=== PATIENT | male | born 1990 | race Caucasian/White ===

== ENCOUNTER 2018-01-21 16:07 | Emergency (ER) | payer OTHER ==
[2018-01-21] MEDS ORDERED: Haloperidol INJ IV/IM* 5 MG/ML AMP ONE (16:40)
[2018-01-21] MEDS ORDERED: diPHENhydraMINE IV* 50 MG/ML 1 ml VIAL (BENADRYL) ONE (16:40)
[2018-01-21] MEDS ORDERED: LORazepam INJ* 2 MG/ML 1 ML VIAL ONE (16:40)
[2018-01-21 16:56] LABS: Urine Appearance Cloudy; Urine Blood Negative (Negative); Urine Color Yellow; Urine Ketones Negative (Negative); Urine Protein 1+(30 mg/dL) (Negative); Urine Specific Gravity 1.016 (1.010-1.030); Urine Urobilinogen Negative (Negative)
[2018-01-21 17:06] LABS: ABS Basophils 0.1 10^3/ul (0-0.2); ABS Eosinophils 0.1 10^3/ul (0-0.6); ABS Lymphocytes 1.6 10^3/ul (1.0-4.8); ABS Monocytes 0.6 10^3/ul (0-0.8); ABS Neutrophils 6.1 10^3/ul (1.5-7.7); ABS Nucleated RBC 0 10^3/ul; Eosinophil % 1.1 % (0-6); Hematocrit 46 % (42-52); Hemoglobin 15.5 g/dl (14.0-18.0); Lymphocyte % 18.4 % (25-47); Mean Corpuscular HGB Conc 34 g/dl (31-36); Mean Corpuscular Hemoglobin 29 pg (27-31); Mean Corpuscular Volume 85 fL (80-94); Mean Platelet Volume 8.4 um3 (7.4-10.4); Nucleated Red Blood Cells % 0.1; Platelet Count 224 10^3/ul (150-450); Red Blood Count 5.39 10^6/ul (4.0-5.4); Red Cell Distribution Width 14 % (10.5-15); White Blood Count 8.5 10^3/ul (3.5-10.8)
[2018-01-21 17:23] LABS: EGFR Non-African American 176.4 (>60)
--- NOTE | 2018-01-21 18:37 | ED ---
Benja Morales Elizabeth, scribed for Jose D Menjivar MD on 01/21/18 at 1635 . Altered Mental Status - HPI Summary HPI Summary: This patient is a 28 year [facility]. Police report that the patient was agitated and said he was going [place], get a bag, and kill myself. Patient denies any EtOH or drugs. Police report that the patient has a hx of drug abuse. Patient reports previous use of oxy and marijuana. - History Of Current Complaint Stated Complaint: 941 Hx Obtained From: Patient, Other: - Leesa GARCIA Hx From Patient Unobtainable Due To: Altered Mental Status Onset/Duration: Unknown, Still Present Timing: Constant, Lasting Hours Severity Currently: Moderate Character: Agitation Aggravating Factor(s): Unknown Has Suicidal: Thoughts - Allergies/Home Medications Allergies/Adverse Reactions: Allergies Allergy/AdvReac Type Severity Reaction Status Date / Time No Known Allergies Allergy Verified 06/23/16 21:09 Home Medications: Home Medications Buprenorphine HCl/Naloxone HCl [Suboxone] 1 tab.sl SL DAILY 01/21/18 [History] Buprenorphine/Naloxone SL TAB* [Suboxone 8-2 mg SL TAB*] 1 tab.sl SL DAILY 01/21 [History] QUEtiapine TAB* [SEROquel TAB*] 400 mg PO BID 01/21/18 [History] PMH/Surg Hx/FS Hx/Imm Hx Opthamlomology History: Denies: Hx Legally Blind EENT History: Denies: Hx Deafness Psychiatric History: Reports: Hx Schizophrenia Infectious Disease History: No Infectious Disease History: Denies: Traveled Outside the [place] in Last 30 Days - Social History Alcohol Use: None Substance Use Type: Reports: Marijuana Smoking Status (MU): Heavy Every Day Tobacco Smoker Type: Cigarettes Amount Used/How Often: 1 PPD Review of Systems Negative: Fatigue Negative: Epistaxis Negative: Chest Pain Negative: Shortness Of Breath All Other Systems Reviewed And Are Negative: Yes Physical Exam - Summary Physical Exam Summary: Appearance: The patient is well-nourished and in no acute pain. Skin: The skin is warm and dry and skin color reflects adequate perfusion. HEENT: The head is normocephalic and atraumatic. The pupils are equal and reactive. The conjunctivae are clear and without drainage. Nares are patent and without drainage. Mouth reveals moist mucous membranes and the throat is without erythema and exudate. The external ears are intact. The ear canals are patent and without drainage. The tympanic membranes are intact. Neck: the neck is supple with full range of motion and non-tender. There are no carotid bruits. There is no neck vein distension. Respiratory: Chest is non-tender. Lungs are clear to auscultation and breath sounds are symmetrical and equal. Cardiovascular: Heart is regular rate and rhythm. There is no murmur or rub auscultated. There is no peripheral edema and pulses are symmetrical and equal. Abdomen: The abdomen is soft and non-tender. There are normal bowel sounds heard in all four quadrants and there is no organomegaly palpated. Musculoskeletal: There is no back tenderness noted. Extremities are non-tender with full range of motion. There is good capillary refill. There is no peripheral edema or calf tenderness elicited. Neurological: Patient is alert and oriented to person, place and time. The patient has symmetrical motor strength in all four extremities. Cranial nerves are grossly intact. Deep tendon reflexes are symmetrical and equal in all four extremities. Patient has a tremor. Psychiatric: The patient has an appropriate affect and does not exhibit any anxiety or depression. Patient is agitated, voluble and cooperative. Triage Information Reviewed: Yes Vital Signs On Initial Exam: Initial Vitals Temp Pulse Resp BP Pulse Ox 99.3 F 111 26 126/63 96 01/21/18 16:21 01/21/18 16:21 01/21/18 16:21 01/21/18 16:21 01/21/18 16:21 Vital Signs Reviewed: Yes Diagnostics - Vital Signs Vital Signs Temp Pulse Resp BP Pulse Ox 01/21/18 16:21 99.3 F 111 26 126/63 96 - Laboratory Lab Results: Lab Results 01/21/18 01/21/18 01/21/18 Range/Units 16:30 16:30 16:58 WBC 8.5 (3.5-10.8) 10^3/ul RBC 5.39 (4.0-5.4) 10^6/ul Hgb 15.5 (14.0-18.0) g/dl Hct 46 (42-52) % MCV 85 (80-94) fL MCH 29 (27-31) pg MCHC 34 (31-36) g/dl RDW 14 (10.5-15) % Plt Count 224 (150-450) 10^3/ul MPV 8.4 (7.4-10.4) um3 Neut % (Auto) 72.1 (38-83) % Lymph % (Auto) 18.4 L (25-47) % [place] % (Auto) 7.3 H (0-7) % Eos % (Auto) 1.1 (0-6) % Baso % (Auto) 1.1 (0-2) % Absolute Neuts (auto) 6.1 (1.5-7.7) 10^3/ul Absolute Lymphs (auto) 1.6 (1.0-4.8) 10^3/ul Absolute Monos (auto) 0.6 (0-0.8) 10^3/ul Absolute Eos (auto) 0.1 (0-0.6) 10^3/ul Absolute Basos (auto) 0.1 (0-0.2) 10^3/ul Absolute Nucleated RBC 0 10^3/ul Nucleated RBC % 0.1 Sodium (139-145) mmol/L Potassium (3.5-5.0) mmol/L Chloride (101-111) mmol/L Carbon Dioxide (22-32) mmol/L Anion Gap (2-11) mmol/L BUN (6-24) mg/dL Creatinine (0.67-1.17) mg/dL Est GFR ( Amer) (>60) Est GFR (Non-Af Amer) (>60) BUN/Creatinine Ratio (8-20) Glucose (70-100) mg/dL Calcium (8.6-10.3) mg/dL Total Bilirubin (0.2-1.0) mg/dL AST (13-39) U/L ALT (7-52) U/L Alkaline Phosphatase (34-104) U/L Total Protein (6.4-8.9) g/dL Albumin (3.2-5.2) g/dL Globulin (2-4) g/dL Albumin/Globulin Ratio (1-3) TSH (0.34-5.60) mcIU/mL Urine Color Yellow Urine Appearance Cloudy Urine pH 7.0 (5-9) Ur Specific [place] 1.016 (1.010-1.030) Urine Protein 1+(30 mg/dl) A (Negative) Urine Ketones Negative (Negative) Urine Blood Negative (Negative) Urine Nitrate Negative (Negative) Urine Bilirubin Negative (Negative) Urine Urobilinogen Negative (Negative) Ur Leukocyte Esterase Negative (Negative) Urine WBC (Auto) Absent (Absent) Urine RBC (Auto) Absent (Absent) Urine Bacteria Absent (Absent) Hyaline Casts Present A (Absent) Urine Glucose Negative (Negative) Salicylates (<30) mg/dL Urine Opiates Screen None detected (None Detect) Acetaminophen mcg/mL Ur Barbiturates Screen None detected (None Detect) Ur Phencyclidine Scrn None detected (None Detect) Ur Amphetamines Screen None detected (None Detect) U Benzodiazepines Scrn None detected (None Detect) Urine Cocaine Screen None detected (None Detect) U Cannabinoids Screen Presumptive positive A (None Detect) Serum Alcohol (<10) mg/dL 01/21/18 Range/Units 16:58 WBC (3.5-10.8) 10^3/ul RBC (4.0-5.4) 10^6/ul Hgb (14.0-18.0) g/dl Hct (42-52) % MCV (80-94) fL MCH (27-31) pg MCHC (31-36) g/dl RDW (10.5-15) % Plt Count (150-450) 10^3/ul MPV (7.4-10.4) um3 Neut % (Auto) (38-83) % Lymph % (Auto) (25-47) % [place] % (Auto) (0-7) % Eos % (Auto) (0-6) % Baso % (Auto) (0-2) % Absolute Neuts (auto) (1.5-7.7) 10^3/ul Absolute Lymphs (auto) (1.0-4.8) 10^3/ul Absolute Monos (auto) (0-0.8) 10^3/ul Absolute Eos (auto) (0-0.6) 10^3/ul Absolute Basos (auto) (0-0.2) 10^3/ul Absolute Nucleated RBC 10^3/ul Nucleated RBC % Sodium 137 L (139-145) mmol/L Potassium 3.7 (3.5-5.0) mmol/L Chloride 104 (101-111) mmol/L Carbon Dioxide 25 (22-32) mmol/L Anion Gap 8 (2-11) mmol/L BUN 15 (6-24) mg/dL Creatinine 0.56 L (0.67-1.17) mg/dL Est GFR ( Amer) 226.8 (>60) Est GFR (Non-Af Amer) 176.4 (>60) BUN/Creatinine Ratio 26.8 H (8-20) Glucose 104 H (70-100) mg/dL Calcium 9.1 (8.6-10.3) mg/dL Total Bilirubin 0.50 (0.2-1.0) mg/dL AST 37 (13-39) U/L ALT 74 H (7-52) U/L Alkaline Phosphatase 89 (34-104) U/L Total Protein 7.5 (6.4-8.9) g/dL Albumin 4.1 (3.2-5.2) g/dL Globulin 3.4 (2-4) g/dL Albumin/Globulin Ratio 1.2 (1-3) TSH 1.90 (0.34-5.60) mcIU/mL Urine Color Urine Appearance Urine pH (5-9) Ur Specific [place] (1.010-1.030) Urine Protein (Negative) Urine Ketones (Negative) Urine Blood (Negative) Urine Nitrate (Negative) Urine Bilirubin (Negative) Urine Urobilinogen (Negative) Ur Leukocyte Esterase (Negative) Urine WBC (Auto) (Absent) Urine RBC (Auto) (Absent) Urine Bacteria (Absent) Hyaline Casts (Absent) Urine Glucose (Negative) Salicylates < 2.50 (<30) mg/dL Urine Opiates Screen (None Detect) Acetaminophen < 15 mcg/mL Ur Barbiturates Screen (None Detect) Ur Phencyclidine Scrn (None Detect) Ur Amphetamines Screen (None Detect) U Benzodiazepines Scrn (None Detect) Urine Cocaine Screen (None Detect) U Cannabinoids Screen (None Detect) Serum Alcohol < 10 (<10) mg/dL Result Diagrams: 01/21/18 16:58 01/21/18 16:58 Lab Statement: Any lab studies that have been ordered have been reviewed, and results considered in the medical decision making process. Altered Mental Statu Course/Dx - Course Course Of Treatment: Mr. Wyatt presents with the police after getting into a domestic dispute. When the police arrived, he threatened to kill himself which he now regrets saying in the heat of the moment. He was aggressive on arrival and was briefly sedated for his and our safety. He is medically cleared at this point and is awaiting a MHE. - Diagnoses Provider Diagnoses: Difficulty controlling anger Discharge - Sign-Out/Discharge Documenting (check all that apply): Sign-Out Patient Signing out patient TO: Dayami Romano - Discharge Plan Condition: Stable - Billing Disposition and Condition Condition: STABLE The documentation as recorded by the Benja newman Elizabeth accurately reflects the service I personally performed and the decisions made by me, Jose D Menjivar MD.
--- NOTE | 2018-01-22 01:18 | ED ---
Carmela Morales Emily, scribed for Dayami Romano MD on 01/22/18 at 0114 . Progress - Progress Note Progress Note: Per mental health food and beverage checker, pt will be involuntarily admitted to [facility]. - Consult/PCP Time Called: 23:28 Course/Dx - Course Course Of Treatment: Mr. Wyatt presents with the police after getting into a domestic dispute. When the police arrived, he threatened to kill himself which he now regrets saying in the heat of the moment. He was aggressive on arrival and was briefly sedated for his and our safety. Pt will be involuntarily admitted. - Diagnoses Provider Diagnoses: Major depressive disorder, recurrent, unspecified Discharge - Sign-Out/Discharge Documenting (check all that apply): Discharge/Admit/Transfer - Admit to [facility], Receiving Sign-Out Receiving patient FROM: Jose D Menjivar - Discharge Plan Condition: Stable Disposition: ADMITTED TO [facility] Referrals: Non Staff,Doctor [Primary Care Provider] - The documentation as recorded by the danielibCarmela may Emily accurately reflects the service I personally performed and the decisions made by me, Dayami Romano MD.
[2018-01-22 08:55] VITALS: BP 108/59
--- NOTE | 2018-01-22 09:25 | PN ---
ED Flex Patient Progress Note Subjective: This is a 28 year-old M who is pending psychiatric evaluation secondary to _SI . Per notes, had a domestic dispute last night and told someone he' d "take a whole bag of dope". Reports he slept pretty well and is still tired. Pt offers no complaints at this time. Drank juice and tc this morning w/o difficulty. Objective: Vitals: Most recent vital signs documented below. General NAD, Alert and oriented x3. Heart: rrr, S1/S2 Lungs: CTA, breathing easily AB: +bs, soft, nttp Psych: calm, cooperative Laboratory: Current laboratory results documented below. Assessment: SI Plan: Pending psychiatric evaluation. Will follow up daily __while in ED___. Vital Signs Temp Pulse Resp BP Pulse Ox 98.4 F 80 16 108/59 95 01/22/18 08:54 01/22/18 08:54 01/22/18 08:54 01/22/18 08:54 01/22/18 08:54 Lab Results - Entire Visit 01/21/18 01/21/18 01/21/18 16:58 16:58 16:30 WBC 8.5 RBC 5.39 Hgb 15.5 Hct 46 MCV 85 MCH 29 MCHC 34 RDW 14 Plt Count 224 MPV 8.4 Neut % (Auto) 72.1 Lymph % (Auto) 18.4 L [place] % (Auto) 7.3 H Eos % (Auto) 1.1 Baso % (Auto) 1.1 Absolute Neuts (auto) 6.1 Absolute Lymphs (auto) 1.6 Absolute Monos (auto) 0.6 Absolute Eos (auto) 0.1 Absolute Basos (auto) 0.1 Absolute Nucleated RBC 0 Nucleated RBC % 0.1 Sodium 137 L Potassium 3.7 Chloride 104 Carbon Dioxide 25 Anion Gap 8 BUN 15 Creatinine 0.56 L Est GFR ( Amer) 226.8 Est GFR (Non-Af Amer) 176.4 BUN/Creatinine Ratio 26.8 H Glucose 104 H Calcium 9.1 Total Bilirubin 0.50 AST 37 ALT 74 H Alkaline Phosphatase 89 Total Protein 7.5 Albumin 4.1 Globulin 3.4 Albumin/Globulin Ratio 1.2 TSH 1.90 Urine Color Urine Appearance Urine pH Ur Specific [place] Urine Protein Urine Ketones Urine Blood Urine Nitrate Urine Bilirubin Urine Urobilinogen Ur Leukocyte Esterase Urine WBC (Auto) Urine RBC (Auto) Urine Bacteria Hyaline Casts Urine Glucose Salicylates < 2.50 Urine Opiates Screen None detected Acetaminophen < 15 Ur Barbiturates Screen None detected Ur Phencyclidine Scrn None detected Ur Amphetamines Screen None detected U Benzodiazepines Scrn None detected Urine Cocaine Screen None detected U Cannabinoids Screen Presumptive positive A Serum Alcohol < 10 01/21/18 16:30 WBC RBC Hgb Hct MCV MCH MCHC RDW Plt Count MPV Neut % (Auto) Lymph % (Auto) [place] % (Auto) Eos % (Auto) Baso % (Auto) Absolute Neuts (auto) Absolute Lymphs (auto) Absolute Monos (auto) Absolute Eos (auto) Absolute Basos (auto) Absolute Nucleated RBC Nucleated RBC % Sodium Potassium Chloride Carbon Dioxide Anion Gap BUN Creatinine Est GFR ( Amer) Est GFR (Non-Af Amer) BUN/Creatinine Ratio Glucose Calcium Total Bilirubin AST ALT Alkaline Phosphatase Total Protein Albumin Globulin Albumin/Globulin Ratio TSH Urine Color Yellow Urine Appearance Cloudy Urine pH 7.0 Ur Specific [place] 1.016 Urine Protein 1+(30 mg/dl) A Urine Ketones Negative Urine Blood Negative Urine Nitrate Negative Urine Bilirubin Negative Urine Urobilinogen Negative Ur Leukocyte Esterase Negative Urine WBC (Auto) Absent Urine RBC (Auto) Absent Urine Bacteria Absent Hyaline Casts Present A Urine Glucose Negative Salicylates Urine Opiates Screen Acetaminophen Ur Barbiturates Screen Ur Phencyclidine Scrn Ur Amphetamines Screen U Benzodiazepines Scrn Urine Cocaine Screen U Cannabinoids Screen Serum Alcohol
--- NOTE | 2018-01-22 18:46 | ED ---
IHermann Tiffany, scribed for Darion Najera MD on 01/22/18 at 0955 . Progress - Progress Note Progress Note: Patient signed out from Dr. Romano, awaiting disposition plan. Mental health hydroelectric plant technician discussed with Dr. Hernandes, psychiatrist. Instead of admission, patient will be discharged home. - Consult/PCP Time Called: 23:28 Course/Dx - Diagnoses Provider Diagnoses: Mood disorder Discharge - Sign-Out/Discharge Documenting (check all that apply): Discharge/Admit/Transfer - Discharge Plan Condition: Stable Disposition: HOME Referrals: Non Staff,Doctor [Primary Care Provider] - - Billing Disposition and Condition Condition: STABLE Disposition: HOME The documentation as recorded by the Hermann newman Tiffany accurately reflects the service I personally performed and the decisions made by , Darion Najera MD.
--- NOTE | 2018-01-23 09:10 | PN ---
Progress Note - Progress Note Date of Service: 01/21/18 Note: patient seen in ED for MHE. had hepatitis panel obtained. got results patient is hep C +. attempted to call patient multiple times. no voicemail box was set up. letter sent to return call and give information to follow up with infectious disease for this result.
== END 2018-01-22 10:15 | disposition home or self-care (01) ==
LOC: ED 16:07
DX: R45.4 Irritability and anger (principal); F33.9 Major depressive disorder, recurrent, unspecified; B19.20 Unspecified viral hepatitis C without hepatic coma; F17.210 Nicotine dependence, cigarettes, uncomplicated
CPT/HCPCS: 36415; 80053; 80074; 80307; 80320; 80329; 81003; 81015; 84443; 85025; 96374; 96375; 99285; G0480; J1200; J1630; J2060